=== PATIENT | male | born 1965 | race Caucasian/White ===

== ENCOUNTER 2018-04-18 13:07 | Emergency (ER) | payer OTHER, SELFPAY ==
[2018-04-18 13:09] VITALS: BP 132/73; PULSE 58; RESP 16; TEMP 37.1; O2SAT 99; BMI 25.0
--- NOTE | 2018-04-18 13:21 | CT_ITS ---
STUDY: CT ABDOMEN AND PELVIS WITHOUT CONTRAST REASON FOR EXAM: Male, 52 years old. Gross hematuria today RADIATION DOSAGE (If Supplied By Facility): CTDIvol = ( 14.74 ) mGy, DLP = ( 872.33 ) mGycm TECHNIQUE: Transaxial images were obtained from the dome of the diaphragm to the symphysis pubis without oral contrast, and without intravenous contrast. Sagittal and coronal images were reconstructed. Individualized dose optimization techniques were used for this CT. COMPARISON: None. FINDINGS: The visualized lung bases are unremarkable. The visualized portions of the heart are within normal limits. Subcentimeter simple cyst of the left hepatic lobe but no solid hepatic masses. Normal gallbladder and extrahepatic biliary system. Normal spleen. Normal pancreas. Normal bilateral adrenal glands. Normal right kidney. There is a 5 mm calculus at the left UVJ but no hydronephrosis identified. Normal visualized stomach. Normal small intestine. Normal colon. There is non-visualization of the appendix. Normal abdominal aorta. Normal inferior vena cava. Normal retroperitoneum. Nondistended urinary bladder. There is enlargement of the prostate gland. Normal abdominal wall. Normal osseous structures. CT/Abdomen/Pelvis W IV Cont ONLY IMPRESSION: 5 mm left UPJ calculus but no hydronephrosis. Electronically Signed: Chad Bonilla MD at 14:52 EST , Service support ,
[2018-04-18] MEDS: 0.9% Normal Saline 1,000 ML 150 ML IV (13:39)
[2018-04-18 13:51] LABS: Bacteria 0 SEEN /hpf (None Seen); Mucous, Urine 0 SEEN /hpf (<or=2+); Squamous Epithelial Cells - UA 0 SEEN /hpf (0-5)
[2018-04-18 13:54] LABS: Absolute Lymphocyte Count 1.83 X10^3/ul (0.83-4.51); Absolute Neutrophil Count 5.4 X10^3/uL (2.0-7.7); Basophil# 0.04 X10^3/uL; Basophil% 0.5 % (0-1); Eosinophil# 0.19 X10^3/uL; Eosinophils% 2.3 % (0-5); Hematocrit 46.5 % (40-54); Hemoglobin 15.7 g/dl (13.0-16.5); Lymphocyte # 1.83 X10^3/ul (4.0); Lymphocyte % 22.2 % (19-41); Mean Corp Hgb Conc 33.8 g/gl (32-36); Mean Corpuscular Hgb 31.4 pg (27.0-32.0); Mean Platelet Vol. 9.9 fl (6.2-12.0); Monocyte% 8.5 % (0-10); Neutrophil # 5.42 X10^3/uL (2.7-7.7); Neutrophil % 65.9 % (47-70); Platelet Count 186 K/mm3 (150-450); RBC Distribution Width CV 12.9 % (11.6-14.6); RBC Distribution Width SD 43.3 fl (35.1-43.9); White Blood Count 8.2 K/mm3 (4.4-11.0)
[2018-04-18 13:54] LABS: Color, Urine Red (Yellow); Glucose, Dipstick Normal (Normal); Ketone-Dipstick 5 mg/dl (Negative); Leukocyte Esterase-Dipstick Negative /ul (Negative); Nitrite-Dipstick Negative (Negative); Occult Blood-Urine 250 /ul (Negative); Protein-Dipstick 500 mg/dl (Negative); Specific Gravity, Urine 1.025 (1.002-1.030); Urine Bilirubin Dipstick Negative (Negative); Urine Clarity Turbid (Clear); Urine Urobilinogen Normal (Normal); Urine pH 6.5 (5.0 - 8.0)
[2018-04-18 13:55] LABS: POSITIVE COUNT NO; POSITIVE DIFFERENTIAL NO; POSITIVE MORPHOLOGY NO
[2018-04-18 14:00] LABS: Red Blood Cells-Urine > 100 SEEN /hpf (0-5)
[2018-04-18 14:01] LABS: White Blood Cells >100 SEEN /hpf (0-5)
[2018-04-18 14:04] LABS: Anion Gap 10 (5-15); BUN 19 mg/dL (7-18); BUN/Creat Ratio 18.8 RATIO (10-20); Calcium,Total 8.7 mg/dL (8.5-10.1); Chloride 106 mmol/L (98-107); Creatinine, Serum 1.01 mg/dL (0.70-1.30); EST Glomerular Filtration Rate 82 mL/min (>60); Est Glom Filt Rate - Afr Amer 100 mL/min (>60); Estimated Creatinine Clearance 99.47 ml/min; Glucose 96 mg/dL (74-106); Potassium 4.2 mmol/L (3.5-5.1); Sodium Level 142 mmol/L (136-145)
[2018-04-18 14:50] VITALS: BP 121/76; PULSE 55; RESP 16; TEMP 37.3; O2SAT 98
[2018-04-18] MEDS: Ceftriaxone 1 GM/50 ML BAG IV (14:53)
[2018-04-18 15:45] VITALS: BP 116/74; PULSE 52; RESP 16; TEMP 36.9; O2SAT 98
--- NOTE | 2018-04-18 16:08 | ED.VISSUMM ---
- ER Visit Summary Date of Service: 04/18/18 Chief Complaint: [Hematuria] History of Present Illness: The patient is a 52 M [presents with hematuria started 15 minutes ago. Patient noticed some warmth to the tip of his penis when he peed and noticed blood became concerned so he came to the emergency department. Patient denies any flank pain out of the ordinary although he states he has some chronic back pain issues. Patient denies any fevers. He has had no nausea or vomiting. He is never had symptoms like this before. Patient does not smoke.] Physical Examination: [HEENT-PERRLA, EOMI. Cranial nerves II through XII grossly intact. TMs clear. Mucous membranes moist. No adenopathy. Cardiovascular-regular rate and rhythm without murmur or ectopy Lungs-clear to auscultation, chest wall stable without crepitus or subcu emphysema Abdomen-normoactive bowel sounds, soft, nontender, no rebound or rigidity, no peritoneal signs. Extremities-intact ?4, normal range of motion, normal pulses, atraumatic] Test Results: [CBC with differential obtained was normal. Chemistries were normal. Urinalysis was positive for greater than 100 WBCs and greater than 100 RBCs, negative leukocyte esterase, negative nitrites, and [address] scan of the abdomen pelvis with IV contrast ordered showed a 5 mm left UPJ stone without hydronephrosis.] Emergency Department Course and Treatment: [Patient was given Rocephin 1 g IV. Case was discussed with the urologist on-call Dr. Flannery] Treatment Plan: [Patient will be discharged home with a prescription for [place], Naprosyn, and Bactrim. Patient has a urologist that he seen before from the [facility] however he cannot remember the name of the urologist. Patient will be referred to his urologist or the urologist on-call for us for follow-up. Patient is advised to return if fever, vomiting, worsening pain.] Disposition: [Discharged home in stable condition] Impression: [Urolithiasis Hematuria UTI ] This note was generated with [employer] software. It may contain incorrect words, spelling, and punctuation that were not noted in review of the chart prior to signing ED Disposition - Plan for ED Patient: Chief Complaint: Complaint Referrals: Mary Ellen Lee MD [Primary Care Provider] -
--- NOTE | 2018-04-18 16:12 | ED.DEP ---
ED Disposition - Plan for ED Patient: Chief Complaint: Complaint Instructions: ED UTI Cystitis Male, ED Stone Renal W Colic Prescriptions: Hydrocodone Bitart/Apap 5-325 [[place] 5MG-325MG] 1 tab PO Q4H PRN PRN 2 Days #20 tab PRN Reason: Pain Naproxen [Naprosyn] 500 mg PO BID PRN #20 tab Smz/Tmp Ds [Bactrim Ds] 1 tab PO BID #14 tab Referrals: Mary Ellen Lee MD [Primary Care Provider] - Ayaz Flannery MD [STAFF PHYSICIAN] - 3-5 Days
--- NOTE | 2018-04-18 16:12 | ED.DCSUM_ITS ---
- ER Visit Summary Date of Service: 04/18/18 Chief Complaint: [Hematuria] History of Present Illness: The patient is a 52 M [presents with hematuria started 15 minutes ago. Patient noticed some warmth to the tip of his penis when he peed and noticed blood became concerned so he came to the emergency department. Patient denies any flank pain out of the ordinary although he states he has some chronic back pain issues. Patient denies any fevers. He has had no nausea or vomiting. He is never had symptoms like this before. Patient does not smoke.] Physical Examination: [HEENT-PERRLA, EOMI. Cranial nerves II through XII grossly intact. TMs clear. Mucous membranes moist. No adenopathy. Cardiovascular-regular rate and rhythm without murmur or ectopy Lungs-clear to auscultation, chest wall stable without crepitus or subcu emphysema Abdomen-normoactive bowel sounds, soft, nontender, no rebound or rigidity, no peritoneal signs. Extremities-intact ?4, normal range of motion, normal pulses, atraumatic] Test Results: [CBC with differential obtained was normal. Chemistries were normal. Urinalysis was positive for greater than 100 WBCs and greater than 100 RBCs, negative leukocyte esterase, negative nitrites, and [address] scan of the abdomen pelvis with IV contrast ordered showed a 5 mm left UPJ stone without hydronephrosis.] Emergency Department Course and Treatment: [Patient was given Rocephin 1 g IV. Case was discussed with the urologist on-call Dr. Flannery] Treatment Plan: [Patient will be discharged home with a prescription for [place], Naprosyn, and Bactrim. Patient has a urologist that he seen before from the [facility] however he cannot remember the name of the urologist. Patient will be referred to his urologist or the urologist on-call for us for follow-up. Patient is advised to return if fever, vomiting, worsening pain.] Disposition: [Discharged home in stable condition] Impression: [Urolithiasis Hematuria UTI ] This note was generated with [employer] software. It may contain incorrect words, spelling, and punctuation that were not noted in review of the chart prior to signing ED Disposition - Plan for ED Patient: Chief Complaint: Complaint Referrals: Mary Ellen Lee MD [Primary Care Provider] -
[2018-04-18 16:48] VITALS: BP 127/76; PULSE 53; RESP 16; O2SAT 98
== END 2018-04-18 16:53 | disposition home or self-care (01) ==
PROVIDERS: Emergency Provider Emergency Medicine; Family Provider Internal Medicine; PCP Internal Medicine
DX: N20.1 Calculus of ureter (principal); N39.0 Urinary tract infection, site not specified; R31.9 Hematuria, unspecified; M54.9 Dorsalgia, unspecified; G89.29 Other chronic pain
CPT/HCPCS: 74177; 80048; 81001; 85025; 87086; 96361; 96365; 99283; J7030; Q9967

== ENCOUNTER 2020-12-05 23:02 | Emergency (ER) | payer OTHER, SELFPAY ==
[2020-12-05 23:03] VITALS: BP 142/81; PULSE 78; RESP 18; TEMP 36.6; O2SAT 96; BMI 25.7
[2020-12-05] MEDS: Rabies Vaccine,Human Diploid 2.5 UNITS Vial IM (23:58)
--- NOTE | 2020-12-06 00:13 | EX.ED.GENINJ ---
HPI History of Present Illness Chief Complaint: Bite Informant: patient Narrative Narrative: Patient was outside earlier this evening when he felt something on the back of his neck. He had pain. He swatted at it and felt wings. He believes he was bit by a bat. He came to the emergency room with further evaluation. He has never had a rabies shot before. PFSH PFS Home Medications tamsulosin 0.4 mg PO DAILY PRN 04/18/18 [History Last Taken Unknown] Allergy/AdvReac Type Severity Reaction Status Date / Time amoxicillin Allergy Rash Verified 12/05/20 23:05 nut - unspecified Allergy Anaphylaxis Verified 12/05/20 23:05 Social History Smoking Status: Never smoker ROS ROS ED Constitutional Constitutional ED: Denies chills or fever(s) Eyes Eyes: Denies change in vision ENT ENT ED: Denies ear pain or rhinorrhea Cardiovascular Cardiovascular: Denies chest pain Respiratory/Chest Respiratory/Chest: Denies cough or dyspnea Gastrointestinal Gastrointestinal: Denies abdominal pain or nausea Musculoskeletal Musculoskeletal: Denies myalgias Integumentary Reports other Details: bat bite to neck Neurologic Neurologic: Denies headache(s) or weakness EXAM Physical Exam Const Vital Signs: 12/05/20 23:03 Temperature 97.9 F Temperature Source Temporal Pulse Rate 78 Respiratory Rate 18 Blood Pressure 142/81 H Blood Pressure Mean 101 Pulse Ox 96 Oxygen Delivery Method Room Air Positive well nourished and well developed General Appearance ED: well developed HEENT Reports TM's clear atraumatic Tympanic Membrane ED: Yes TM's clear Eyes PERRL and EOMs intact bilaterally Neck full ROM General: Negative for tenderness Chest Wall inspection of chest normal Resp normal respiratory effort and clear to auscultation bilaterally Cardio regular rhythm Rate: regular rate Extremity normal to inspection and full ROM Neuro oriented x3 and no focal motor deficits Sensorium / Orientation: alert Skin Skin Narrative: Two pinpoint abrasion on the posterior neck consistent with a bat bite MDM MDM MDM Narrative Medical decision making narrative: Patient states he was bit by a bat. He is given rabies immunoglobulin around the site as well as rabies vaccine. He will be discharged home with rabies vaccine series for follow-up. Is counseled on return precautions. Discharged home in stable condition. Discharge Plan Triage Chief Complaint: Bite ED Provider: Anyi Lehman Dx/Rx/DC Orders Clinical Impression: Bat bite wound, Rabies exposure Instructions: Understanding Rabies, ED Animal Bite (General) Prescriptions: No Action tamsulosin 0.4 MG capsule 0.4 mg PO DAILY PRN (Reason: Pain) RF: 0 Primary Care Provider: Mary Ellen Lee Referrals: Mary Ellen Lee MD [Primary Care Provider] - Disposition Disposition: Home, Self Care Discharge Date/Time: 12/06/20 00:56
[2020-12-06] MEDS: Rabies Immune Globulin/PF 300 UNIT/ML, 5 ML VIAL 1810 UNIT IM (00:49)
== END 2020-12-06 00:56 | disposition home or self-care (01) ==
PROVIDERS: Emergency Provider Emergency Medicine; PCP Internal Medicine
DX: S10.97XA Other superficial bite of unspecified part of neck, initial encounter (principal); W55.81XA Bitten by other mammals, initial encounter; Y93.9 Activity, unspecified; Y92.9 Unspecified place or not applicable; Z20.3 Contact with and (suspected) exposure to rabies
CPT/HCPCS: 90375; 90675; 96372; 99282

== ENCOUNTER 2020-12-08 08:25 | Outpatient (CLI) | payer OTHER, SELFPAY ==
[2020-12-08 08:28] VITALS: BP 145/78; PULSE 54; RESP 16; TEMP 35.8; O2SAT 98; BMI 25.7
== END 2020-12-08 09:30 | disposition home or self-care (01) ==
PROVIDERS: PCP Internal Medicine; Visit Provider Emergency Medicine
DX: Z23 Encounter for immunization (principal)
CPT/HCPCS: 90675; 96372

== ENCOUNTER 2020-12-11 08:18 | Emergency (ER) | payer OTHER, SELFPAY ==
[2020-12-11 08:19] VITALS: BP 105/72; PULSE 56; RESP 14; TEMP 36.1; O2SAT 97; BMI 25.9
[2020-12-11] MEDS: Rabies Vaccine,Human Diploid 2.5 UNITS Vial IM (08:53)
== END 2020-12-11 09:30 | disposition home or self-care (01) ==
LOC: ED 08:48
PROVIDERS: PCP Internal Medicine
DX: Z23 Encounter for immunization (principal)
CPT/HCPCS: 90675; 96372

== ENCOUNTER 2020-12-14 08:20 | Outpatient (CLI) | payer OTHER, SELFPAY ==
[2020-12-14 08:20] VITALS: BP 139/73; PULSE 58; RESP 16; TEMP 36.6; O2SAT 100; BMI 25.7
[2020-12-14] MEDS: Rabies Vaccine,Human Diploid 2.5 UNITS Vial IM (08:56)
== END 2020-12-14 09:10 | disposition home or self-care (01) ==
LOC: ED 09:30
PROVIDERS: PCP Internal Medicine
DX: Z23 Encounter for immunization (principal)
CPT/HCPCS: 90675; 96372